=== PATIENT | male | born 1970 | race Caucasian/White ===

== ENCOUNTER 2022-07-02 02:33 | Emergency (ER) | payer MEDICARE, MEDICAID ==
[~2022-07-02] VITALS: Ht 180.3 cm; Wt 159.0 kg
[~2022-07-02 02:33] MED LIST: HUMALOG100 UNIT/M SC; HYDROMORPHON8 MG PO; LANTUS100 UNIT; METFORMIN; METFORMIN HCL1000 MG PO; VICTOZA18 MG/3 ML; XTAMPZA ER27 MG PO
[2022-07-02] MEDS ORDERED: AMOXICILLIN/PO500 MG PO ×2 (03:23→03:47)
[2022-07-02] MEDS ORDERED: FLOXIN OTIC0.3 % AS ×2 (03:23→03:47)
[2022-07-02 03:31] VITALS: BP 122/78
== END 2022-07-02 04:07 | disposition home or self-care (01) ==
LOC: ED 02:33
PROC: 09C4XZZ Extirpation of Matter from Left External Auditory Canal, External Approach (ICD-10-PCS; principal; 2022-07-02)
DX: T16.2XXA Foreign body in left ear, initial encounter (principal); E11.9 Type 2 diabetes mellitus without complications; X58.XXXA Exposure to other specified factors, initial encounter; Z79.84 Long term (current) use of oral hypoglycemic drugs

== ENCOUNTER 2023-05-08 21:35 | Emergency (ER) | payer MEDICARE, MEDICAID ==
[~2023-05-08] VITALS: Ht 175.3 cm; Wt 190.0 kg
[~2023-05-08 21:35] MED LIST changes: +AMOXICILLIN/PO500 MG PO; +FLOXIN OTIC0.3 % AS
[2023-05-08 21:41] VITALS: BP 143/77
[2023-05-08 22:00] VITALS: BP 127/79
[2023-05-08 22:30] VITALS: BP 119/80
[2023-05-08 22:48] LABS: BASO% 0.7 % (0-3); EOS% 3.2 % (0-8); HEMATOCRIT 43.9 % (39.0-50.0); HEMOGLOBIN 13.9 g/dl (14.0-18.0); IMMATURE GRANULOCYTES 0.8 % (0.0-5.0); LYMPH% 24.5 % (15-41); MEAN CELL VOLUME 85.9 fL CALC (80.0-100.0); MEAN CORPUSCULAR HGB 27.2 pG CALC (26.0-32.0); MEAN CORPUSCULAR HGB CONC 31.7 g/dL CAL (32.0-36.0); MONO% 8.9 % (2-13); NEUT# 6.57 thou/uL (1.82-7.42); NEUT% 61.9 % (42-76); RED BLOOD COUNT 5.11 mill/uL (4.70-6.10); RED CELL DISTRI WIDTH 14.3 % (11.5-15.5)
[2023-05-08 23:00] VITALS: BP 134/76
[2023-05-08 23:30] VITALS: BP 153/127
[2023-05-08 23:31] VITALS: BP 108/76
[2023-05-09 00:01] VITALS: BP 171/97
[2023-05-09 00:30] VITALS: BP 164/90
[2023-05-09 01:08] VITALS: BP 129/109
[2023-05-09 01:09] VITALS: BP 154/94
[2023-05-09 01:28] LABS: URINE BILIRUBIN - DIPSTICK Negative (NEGATIVE); URINE BLOOD DIPSTICK Negative (NEGATIVE); URINE GLUCOSE - DIPSTICK 500 mg/dL (NEGATIVE); URINE KETONE Trace mg/dL (NEGATIVE); URINE LEUK ESTERASE Negative (NEGATIVE); URINE NITRITE - DIPSTICK Negative (Negative); URINE PROTEIN - DIPSTICK Negative (NEG-TRACE); URINE SPECIFIC GRAVITY 1.025
[2023-05-09 01:31] LABS: URINE COLOR Yellow
[2023-05-09 02:14] VITALS: BP 154/94
== END 2023-05-09 02:31 | disposition home or self-care (01) ==
LOC: ED 21:35
PROVIDERS: Family Medicine
DX: J44.1 Chronic obstructive pulmonary disease with (acute) exacerbation (principal); E11.42 Type 2 diabetes mellitus with diabetic polyneuropathy; E66.01 Morbid (severe) obesity due to excess calories; Z79.4 Long term (current) use of insulin

== ENCOUNTER 2024-03-03 15:31 | Emergency (ER) | payer MEDICARE ==
[~2024-03-03] VITALS: Ht 175.3 cm; Wt 199.6 kg
[2024-03-03] VITALS (11 sets, daily range): BP systolic 116–160; BP diastolic 64–96
[2024-03-03] MEDS ORDERED: LIDOcaine HCl 1% (Local Anesth.) 20 ML VIAL IM STA (16:18)
[2024-03-03] MEDS ORDERED: FLUCONAZOLE 150 MG/TAB PO ONE (16:20)
[2024-03-03] MEDS ORDERED: cefTRIAXone SODIUM 1 GM/VIAL SDV IM ONE (16:20)
[2024-03-03 17:07] LABS: URINE BILIRUBIN - DIPSTICK Negative (NEGATIVE); URINE BLOOD DIPSTICK Small (NEGATIVE); URINE COLOR Yellow; URINE GLUCOSE - DIPSTICK 500 mg/dL (NEGATIVE); URINE KETONE Negative (NEGATIVE); URINE LEUK ESTERASE Trace (NEGATIVE); URINE NITRITE - DIPSTICK Negative (Negative); URINE PH 5.5 (4.5-8.0); URINE PROTEIN - DIPSTICK Negative (NEG-TRACE); URINE UROBILINOGEN - DIPSTICK 0.2 E.U./dL (0.2)
[2024-03-03 17:16] LABS: URINE YEAST RARE hpf
[2024-03-03 17:17] LABS: URINE BACTERIA RARE hpf
[2024-03-03] MEDS ORDERED: KEFLEX500 MG PO (17:40)
[2024-03-03] MEDS ORDERED: METRONIDAZOLE500 MG PO (17:40)
[2024-03-03] MEDS ORDERED: KURIC21 EX (17:44)
== END 2024-03-03 17:53 | disposition home or self-care (01) ==
LOC: ED 15:31
PROVIDERS: Nurse Practitioner
DX: N48.1 Balanitis (principal); J44.9 Chronic obstructive pulmonary disease, unspecified; E11.40 Type 2 diabetes mellitus with diabetic neuropathy, unspecified; E66.01 Morbid (severe) obesity due to excess calories; Z79.4 Long term (current) use of insulin

== ENCOUNTER 2024-08-08 16:15 | Emergency (ER) | payer MEDICARE ==
[~2024-08-08] VITALS: Ht 175.3 cm; Wt 184.0 kg
[~2024-08-08 16:15] MED LIST changes: +KEFLEX500 MG PO; +KURIC21 EX; +METRONIDAZOLE500 MG PO
[2024-08-08] MEDS ORDERED: VANCOMYCIN HCL 1 GM in SODIUM CHLORIDE 0.9% 500 ML IV ONE (17:05)
[2024-08-08] MEDS ORDERED: CLINDAMYCIN PHOSPHATE 50 ML IV ONE (17:05)
[2024-08-08] MEDS ORDERED: CEFEPIME HYDROCHLORIDE 2 GM in SODIUM CHLORIDE 0.9% 100 ML IV ONE (17:05)
[2024-08-08 17:22] LABS: BASO% 0.5 % (0-3); EOS% 2.2 % (0-8); HEMATOCRIT 48.2 % (39.0-50.0); HEMOGLOBIN 15.7 g/dl (14.0-18.0); IMMATURE GRANULOCYTES 0.9 % (0.0-5.0); LYMPH% 26.3 % (15-41); MEAN CELL VOLUME 86.1 fL CALC (80.0-100.0); MEAN CORPUSCULAR HGB CONC 32.6 g/dL CAL (32.0-36.0); MONO% 7.4 % (2-13); NEUT# 6.71 thou/uL (1.82-7.42); NEUT% 62.7 % (42-76); RED BLOOD COUNT 5.6 mill/uL (4.70-6.10); RED CELL DISTRI WIDTH 13.5 % (11.5-15.5)
[2024-08-08 17:39] LABS: ALBUMIN 3.7 g/dL (3.2-5.0); BILIRUBIN, TOTAL 0.4 mg/dL (0.2-1.3); CREATININE 0.7 mg/dL (0.7-1.3); POTASSIUM 4.4 mmol/l (3.5-5.1); TOTAL PROTEIN 6.8 g/dL (6.3-8.2)
[2024-08-08 21:16] VITALS: BP 121/80
== END 2024-08-08 21:16 | disposition left against medical advice (07) ==
LOC: ED 16:15
PROVIDERS: Nurse Practitioner
DX: N49.2 Inflammatory disorders of scrotum (principal); L03.312 Cellulitis of back [any part except buttock and flank]; E11.65 Type 2 diabetes mellitus with hyperglycemia; E11.40 Type 2 diabetes mellitus with diabetic neuropathy, unspecified; J44.9 Chronic obstructive pulmonary disease, unspecified; G89.4 Chronic pain syndrome; Z79.4 Long term (current) use of insulin; Z53.29 Procedure and treatment not carried out because of patient's decision for other reasons
CPT/HCPCS: J0692; J0736; J3370; Q9967

== ENCOUNTER 2024-10-13 08:34 | Emergency (ER) | payer MEDICARE ==
[2024-10-13] VITALS (21 sets, daily range): BP systolic 80–162; BP diastolic 58–95
[~2024-10-13] VITALS: Ht 175.3 cm; Wt 185.0 kg
[2024-10-13] MEDS ORDERED: LIDOCAINE W/ EPINEPHRINE 10 MG/ML INJ STI STA (08:45)
[2024-10-13] MEDS ORDERED: VANCOMYCIN HCL 1 GM in SODIUM CHLORIDE 0.9% 500 ML IV ONE (08:45)
[2024-10-13] MEDS ORDERED: POVIDONE IODINE 0.5 OZ/BTL TOP STA (08:45)
[2024-10-13] MEDS ORDERED: CLINDAMYCIN PHOSPHATE 50 ML IV ONE (08:50)
[2024-10-13] MEDS ORDERED: INSULIN REGULAR (HUMAN) 100 UNIT/ML INJ IV ONE ×2 (08:50→11:05)
[2024-10-13] MEDS ORDERED: SODIUM CHLORIDE 0.9% 1,000 ML IV ONE (08:50)
[2024-10-13] MEDS ORDERED: KETOROLAC TROMETHAMINE 30 MG/ML SDV IV ONE (09:15)
[2024-10-13] MEDS ORDERED: MORPHINE SULFATE 4 MG/ML VIAL IV ONE ×2 (09:15→12:55)
[2024-10-13 09:17] LABS: BASO% 0.3 % (0-3); EOS% 2.6 % (0-8); HEMATOCRIT 47.7 % (39.0-50.0); IMMATURE GRANULOCYTES 0.6 % (0.0-5.0); LYMPH% 13.3 % (15-41); MEAN CELL VOLUME 86.4 fL CALC (80.0-100.0); MEAN CORPUSCULAR HGB 27.2 pG CALC (26.0-32.0); MEAN CORPUSCULAR HGB CONC 31.4 g/dL CAL (32.0-36.0); MONO% 10.4 % (2-13); NEUT# 12.49 thou/uL (1.82-7.42); NEUT% 72.8 % (42-76); RED BLOOD COUNT 5.52 mill/uL (4.70-6.10)
[2024-10-13 09:42] LABS: ALBUMIN 3.6 g/dL (3.2-5.0); CREATININE 0.7 mg/dL (0.7-1.3); POTASSIUM 4.6 mmol/l (3.5-5.1); TOTAL PROTEIN 7.5 g/dL (6.3-8.2)
[2024-10-13 09:43] LABS: BILIRUBIN, TOTAL 0.6 mg/dL (0.2-1.3)
[2024-10-13] MEDS ORDERED: PROTONIX40 MG PO (14:59)
[2024-10-13] MEDS ORDERED: CLINDAMYCIN HC150 MG PO (14:59)
== END 2024-10-13 15:14 | disposition left against medical advice (07) ==
LOC: ED 08:34
PROVIDERS: Emergency Medicine
PROC: 0H94XZZ Drainage of Neck Skin, External Approach (ICD-10-PCS; principal; 2024-10-13)
DX: L02.11 Cutaneous abscess of neck (principal); L03.221 Cellulitis of neck; E11.40 Type 2 diabetes mellitus with diabetic neuropathy, unspecified; J44.89 Other specified chronic obstructive pulmonary disease; Z79.4 Long term (current) use of insulin; Z79.85 Long-term (current) use of injectable non-insulin antidiabetic drugs; Z53.29 Procedure and treatment not carried out because of patient's decision for other reasons
CPT/HCPCS: J0736; J3370